=== PATIENT | female | born 1935 | race Two or more races ===

== ENCOUNTER 2016-08-29 10:36 | Observation (INO) | payer MEDICARE ==
[~2016-08-29] VITALS: Ht 147.3 cm; Wt 79.0 kg
--- NOTE | ~2016-08-29 | ECHO ---
Transthoracic Echocardiography Report (TTE) Demographics Patient Name ROSANNA ALDRIDGE Date of Study 08/30/2016 Patient Number [id number] Visit Number [id number] Date of 1935 Room Number G6327 Gender Female Number Age 80 year(s) Referring Lulu [facility] Medical Cash Poster Sujatha Zelaya RDCS, Physician RVT Physician Interpreting Marco Long Field Services Director Physician Supervising Ordering Ethan Lackey MD/MLP Physician Nurse Stress Foam Machine Operator Conclusions Contractility Score Summary Normal Left Ventricular contractility was noted. Summary Normal LV/RV size and systolic function. The estimated left ventricular ejection fraction is 55-60%. Mild concentric left ventricular hypertrophy. Diastolic assessment reveals Grade I diastolic dysfunction. The aortic valve is moderately sclerotic. No evidence of pericardial effusion. Procedure Type of Study TTE procedure:2D Echocardiogram. Procedure Date Date: 08/30/2016 Start: 10:36 AM Study Location: Inpatient Portable Technical Quality: Fair Indications:Syncope. Appropriate Use Criteria: 9 Patient Status: Routine Rhythm: Within normal limits M-Mode/2D Measurements LV Diastolic Dimension: 3.88 cm LV Systolic Dimension: 2.36 cm LV Septum Diastolic: 1.36 cm LV Septum Systolic: 2.33 cm LV PW Diastolic: 1.16 cm AO Root Dimension: 2.1 cm AV Cusp Separation: 1.4 cm RV Diastolic Dimension: 2.78 cm LA Dimension: 3.9 cm LA volume: 46 ml IVC Inspiration: 0.73 cm LVOT: 2.2 cm RV Base: 5.9 cm LVOT VTI: 22.1 cm RV Mid: 2.6 cm LV Stroke volume: 83.97 ml RV Length: 3.48 cm TAPSE: 1.69 cm TDI-S': 16 cm/s Doppler Measurements AV Peak Velocity: 2.31 m/s MV Peak E-Wave: 0.75 m/s AV Peak Gradient: 21.34 mmHg MV Peak A-Wave: 1.26 m/s AV Mean Gradient: 12 mmHg MV E/A Ratio: 0.6 LVOT Peak Velocity: 0.88 m/s MV P1/2t: 56 msec TR Gradient:29.38 mmHg PV Peak Velocity: 1.08 m/s Estimated RAP:3 mmHg PV Peak Gradient: 4.67 mmHg Estimated RVSP: 32 mmHg Estimated PASP: 32.38 mmHg E' Septal Velocity: 0.04 m/s A' Lateral Velocity: 0.13 m/s E' Lateral Velocity: 0.08 m/s MV E/E' Ratio: 9 Findings Left Ventricle The estimated left ventricular ejection fraction is 55-60%. Mild concentric left ventricular hypertrophy. Diastolic assessment reveals Grade I diastolic dysfunction. Right Ventricle Grossly normal right ventricle structure and function. Left Atrium Grossly normal left atrial size. Right Atrium Grossly normal right atrial size. Mitral Valve Mild mitral regurgitation by color Doppler. Aortic Valve The aortic valve is moderately sclerotic. Tricuspid Valve Mild tricuspid regurgitation by color Doppler. Pulmonic Valve Trivial pulmonic valve regurgitation by color Doppler. Pericardial Effusion No evidence of pericardial effusion. Miscellaneous Visualized portions of the aortic root and ascending aorta appear normal in size. Pleural Effusion No evidence of pleural effusion. Signature dtt: CEDRIC BERGMAN dtd: 08/30/16 1036 Physician Self Edit
--- NOTE | ~2016-08-29 | ENPV ---
Vascular Lower Extremities DVT Study Procedure Demographics Patient Name ROSANNA ALDRIDGE Date of Study 08/30/2016 Patient Number [id number] Gender Female Date of 1935 Age 80 Visit Number [id number] Height Accession Number [id number] Weight Room Number G6327 BSA BMI Referring Interpreting Wesley Wylie MD Physician Physician Physician Dana Blankenship V Employment Programs Analyst Physician Blade Filer Anne Witt [facility] Conclusions Summary Negative for DVT Procedure Type of Study: Veins:Lower Extremities DVT Study, Lower Extremity Left. Patient Status:Routine. Study Location:Inpatient Portable. Technical Quality:Adequate visualization. Velocities are measured in cm/s ; Diameters are measured in cm Right Lower Extremities DVT Study Measurements Right 2D and Doppler Measurements + + + + +------+------+ + !Location !Visualized!Compressibility!Thrombosis!Signal!Reflux!Reflux ! ! ! ! ! ! ! !(sec) ! + + + + +------+------+ + !GSV Thigh !Yes !Yes !None !Phasic!No ! ! + + + + +------+------+ + !Common !Yes !Yes !None !Phasic!No ! ! !Femoral ! ! ! ! ! ! ! + + + + +------+------+ + !Prox !Yes !Yes !None !Phasic!No ! ! !Femoral ! ! ! ! ! ! ! + + + + +------+------+ + !Mid Femoral!Yes !Yes !None !Phasic!No ! ! + + + + +------+------+ + !Dist !Yes !Yes !None !Phasic!No ! ! !Femoral ! ! ! ! ! ! ! + + + + +------+------+ + !Popliteal !Yes !Yes !None !Phasic!No ! ! + + + + +------+------+ + !Gastroc !Yes !Yes !None !Phasic!No ! ! + + + + +------+------+ + !PTV !Yes !Yes !None !Phasic!No ! ! + + + + +------+------+ + !Peroneal !Yes !Yes !None !Phasic!No ! ! + + + + +------+------+ + Signature dtt: LUCINDA SHELBY dttamir: 08/30/16 1404 Physician Self Edit
--- NOTE | ~2016-08-29 | CON ---
PATIENT'S NAME: ROSANNA ALDRIDGE [facility] AGE: 80 Y [address] ROOM: G6327 [place], [place] [address] LOCATION: GPCU ADMIT DATE: 08/29/2016 Consultation DISCHARGE DATE: FAMILY PHYSICIAN: YANICK SEN MD ATTENDING PHYSICIAN: VENTURA MARIN V REFERRING PHYSICIAN: Hector Curtis MD REFERRING PHYSICIAN: Ventura Marin MD REASON FOR CONSULT: Syncope. HISTORY OF PRESENT ILLNESS: This is a very pleasant 80-year-old female, who is admitted to the hospital after a syncopal episode. She was reported in 2014 to have a history of paroxysmal atrial fibrillation. She has had followups with Dr. Efrem Davis in the past. She is now on full aspirin therapy, that was started by her primary care physician for possible paroxysmal atrial fibrillation. On day of admission, she had an unwitnessed fall. She was found by the daughter- in-law. She was awake but very confused. She was incontinent of stool and urine. They tried to get her up, but she became unresponsive again, and therefore, the ambulance was called. No seizure activity was noted. She then was very confused and taken to the hospital. She did have an elevated D-dimer and had a CT scan of the head, which was negative. She also underwent a V/Q scan for possible PE, that showed low probability. She had carotid Dopplers done, on the right showing 40%-50% narrowing, left 1%-39% narrowing. She also had Dopplers of the lower extremities, that ruled out for DVT. Her cardiac enzymes were normal. She did have an echocardiogram showing an EF of 55% to 60% with normal heart valves. Her RVSP was 32. The patient denies any exertional chest pain, but she does complain of severe shortness of breath with any kind of activity. She states she recovers fairly quickly once she sits down and rests. She complains of feeling dizzy quite often, and she states she walks very "off balance" a lot. In fact, she sustained a fractured left leg and knee in July due to a one of these falls. PAST MEDICAL HISTORY: 1. Essential hypertension. 2. Hyperlipidemia. 3. Osteoporosis. 4. Autoimmune hepatitis C. 5. History of shingles. 6. Vertebral fractures after a fall out of bed. 7. Left knee fracture and repair in July 2016. PATIENT'S NAME: ROSANNA ALDRIDGE [facility] AGE: 80 Y [address] ROOM: G6327 [place], [place] [address] [facility] ADMIT DATE: 08/29/2016 Consultation DISCHARGE DATE: FAMILY PHYSICIAN: YANICK SEN MD ATTENDING PHYSICIAN: VENTURA MARIN V PAST SURGICAL HISTORY: 1. Lap cholecystectomy. 2. Bilateral cataract surgery. CURRENT MEDICATIONS: 1. Aspirin 325 mg p.o. every day. 2. Spironolactone 12.5 mg every day. 3. Prednisone 10 mg every day for the autoimmune hepatitis. 4. Potassium chloride 30 mEq b.i.d. 5. Ditropan XL 5 mg p.o. every h.s. 6. Omeprazole 20 mg every day. 7. Metoprolol tartrate 12.5 mg p.o. b.i.d. 8. Loratadine 10 mg daily. 9. Ibuprofen 200 mg p.r.n. 10. Lexapro 10 mg every h.s. 11. Calcium 600 plus D one tablet b.i.d. 12. Amlodipine 2.5 mg every day. 13. Xanax 0.5 mg p.r.n. anxiety. 14. Fosamax 70 mg every week on Wednesday. ALLERGIES: NONE TO MEDICATIONS. REVIEW OF SYSTEMS: GENERAL: She denies any fevers or chills. HEAD: She denies headaches. EYES: She wears corrective lenses. EARS: No problems with hearing. NOSE: No epistaxis or rhinorrhea. MOUTH: No gingival bleeding. THROAT: Denies sore throat, hoarseness, or difficulty swallowing. PULMONARY: Denies cough or hemoptysis. GASTROINTESTINAL: Negative for nausea, vomiting, or diarrhea. GENITOURINARY: Positive for urinary frequency and incontinence with dribbling. MUSCULOSKELETAL: She has a history of osteoporosis, recent fractures in her spinal column as well as left leg and knee. There are no complaints of joint swelling. NEUROLOGIC: She does have problems with dizziness and presyncope. No history of seizures. PSYCHIATRIC: She is on Lexapro for anxiety. PHYSICAL EXAMINATION: VITAL SIGNS: She is 4 feet 10 inches and weighs 79 kg. Blood pressure is PATIENT'S NAME: ROSANNA ALDRIDGE [facility] AGE: 80 Y [address] ROOM: G6327 [place], [place] [address] LOCATION: GPCU ADMIT DATE: 08/29/2016 Consultation DISCHARGE DATE: FAMILY PHYSICIAN: YANICK SEN MD ATTENDING PHYSICIAN: VENTURA MARIN V 120/68, heart rate 65, temperature is 98.3. GENERAL: On exam, this is a very pleasant female, who appears to be in no acute distress. HEENT: Her pupils are equal. They do react briskly to light. Conjunctivae are clear. Nose is non-deviated. No rhinorrhea is noted. Oral mucosa is pink and moist. No lesions noted. NECK: Soft and supple. No lymphadenopathy. No thyromegaly. JVD is flat. No carotid bruits are appreciated. LUNGS: Lung sounds are clear anteriorly and posteriorly with good symmetrical chest rise. CV: Distant but regular with a normal S1 and S2. No murmur is appreciated. No rub or click. ABDOMEN: Obese but soft. Bowel sounds are present in all 4 quadrants. EXTREMITIES: Show trace peripheral edema noted in the left leg with a fairly recent scar noted on the left lateral knee area. Distal pulses are 2+/4. LABORATORY DATA: Hemoglobin is 11.7, BUN is 1.1. Sodium 145, potassium is 4.6, magnesium is 2.8. ASSESSMENT: 1. Syncope. She has had a history of witnessed paroxysmal fibrillation in the past. We will continue her on telemetry. We will also check a TSH and free T4. 2. Shortness of breath with activity. This may need further investigation. It is certainly could be an angina equivalent findings. The assessment and plan, history of present illness, and physical exam are per Dr. Hector Curtis. Further recommendations will be forthcoming as information becomes available. BARRIE RAY APRN FOR MD KATHYA JOHNSON/jerry /[id number] d: 09/02/16 0011 t: 09/22/16 0807, CONSULTATION REPORT
--- NOTE | ~2016-08-29 | HP ---
PATIENT'S NAME: ROSANNA ALDRIDGE [facility] AGE: 80 Y [address] ROOM: G6327 [place], [place] [address] LOCATION: GPCU ADMIT DATE: 08/29/2016 History & Physical DISCHARGE DATE: FAMILY PHYSICIAN: YANICK SEN MD ATTENDING PHYSICIAN: VENTURA MARIN V DATE OF SERVICE: CHIEF COMPLAINT: Passed out. HISTORY OF PRESENT ILLNESS: This is obtained entirely from the family members. The patient is a 80-year- old female who sustained an unwitnessed fall earlier today. Apparently, her [id number] heard a thud and went to see her mother. She was on the floor and was awake. However, when she tried to get her up, the patient became unresponsive and lost consciousness. She was unconscious for approximately 1 minute. The patient has no recollection of any of these events, and her first memory is a dose of coming to "that in the ambulance." The family reports that they did not observe any convulsive activity. They do, however, endorse that the patient was quite confused and "glassy eyed," when they were attending to her. Of note, the patient had a tibial plateau repair several months ago. On review of systems, there is positive for intermittent edema of that extremity with dyspnea on even mild exertion. They also endorse muscle fatigue. In the ER, the patient had a workup that was only remarkable for a D-dimer of 1.69, and creatinine of 1.2 up from a baseline of 0.9. At this point, she is alert, oriented, and appropriate. REVIEW OF SYSTEMS: Negative aside from the pertinent positives mentioned above. PAST MEDICAL HISTORY: 1. Autoimmune hepatitis. 2. Hypercholesterolemia. 3. Essential hypertension. 4. The family reported a past medical history of hypertensive intracerebral bleed, however, that appears to be as an old calcification which showed up on the CAT scan done in the ER. CURRENT MEDICATIONS: 1. Aspirin. 2. Metoprolol. 3. Prednisone 10 (for autoimmune hepatitis). 4. Amlodipine. PATIENT'S NAME: ROSANNA ALDRIDGE [facility] AGE: 80 Y [address] ROOM: [address] [place], [place] [address] LOCATION: GPCU ADMIT DATE: 08/29/2016 History & Physical DISCHARGE DATE: FAMILY PHYSICIAN: YANICK SEN MD ATTENDING PHYSICIAN: VENTURA MARIN V 5. Potassium. 6. Lexapro. 7. Alprazolam. 8. Fosamax. 9. Oxybutynin. FAMILY HISTORY: Negative as reported by the patient. SOCIAL HISTORY: Negative for any ongoing or history of toxic habits. PHYSICAL EXAMINATION: VITAL SIGNS: Blood pressure is 112/65, heart rate 87, and saturating 97 to 99% on room air. Afebrile. Respirations are 16. GENERAL: Appears as a morbidly obese, elderly female, in no acute distress. NEUROLOGICAL: Nonfocal. HEENT: Eye exam shows pupils are equal and reactive to light. LYMPHATIC: Shows no cervical lymphadenopathy. ENDOCRINE: Shows no thyromegaly. LUNGS: Clear to auscultation in all davila. CARDIOVASCULAR: Heart rate is regular with no appreciable murmurs, gallops, or rubs. GASTROINTESTINAL: Abdomen is soft, obese, and nontender with slightly diminished bowel sounds. VASCULAR: Reveals 2+ pedal pulses and no lower extremity edema. left carotid bruit present MUSCULOSKELETAL: Shows no muscle or joint abnormalities. SKIN: Warm and dry. PSYCHIATRIC: Reveals appropriate mood, cognition, and affect. LABORATORY DATA: Studies performed in the ER is an unremarkable chest x-ray. An EKG which shows normal sinus rhythm at 78 beats per minute without any ST-segment abnormalities. Glucose is 110, calcium 8.3, creatinine 1.2, and albumin is 2.7. Total bilirubin is 1.7, alkaline phosphatase 154, AST 63, and ALT 52. ProBNP is 459, TSH is 2.970, and D-dimer is 1.65. Urinalysis is unremarkable. ASSESSMENT AND PLAN: This is a 80-year-old female who was admitted with syncope. Individual problems to be addressed are as follows: 1. Syncope. Underlying etiology for this is unclear. This could be a vasovagal episode versus an arrhythmia versus a possible cerebrovascular disease given the presence of a left carotid bruit. We will admit the patient to telemetry unit. We will get carotid ultrasounds. We will get additional sets of cardiac enzymes. We will check orthostatic vital PATIENT'S NAME: ROSANNA ALDRIDGE [facility] AGE: 80 Y [address] ROOM: G6327 [place], [place] [address] [facility] ADMIT DATE: 08/29/2016 History & Physical DISCHARGE DATE: FAMILY PHYSICIAN: YANICK SEN MD ATTENDING PHYSICIAN: VENTURA MARIN V signs. 2. Reported dyspnea and lower extremity edema. The patient has been ordered for a V/Q scan. At this point, she is not hypoxic or tachycardic, or reports any chest pain. As such, we will hold off on anticoagulation and follow up the results of the V/Q scan. 3. Creatinine elevation. We will gently hydrate the patient. We will repeat her electrolytes in the morning. 4. Diminished bowel sounds. We will get a flat film of the abdomen. 5. Essential hypertension. We will continue the patient on her current regimen. 6. Additional management will depend on clinical course. Time dedicated to this patient's encounter is 35 minutes. MD ROJAS LAWSON/jerry /[id number] D: [id number] T: [id number] HISTORY & PHYSICAL
--- NOTE | ~2016-08-29 | NDGEN ---
PATIENT'S NAME: LUIS CARLOS [facility] AGE: 80 Y [address] ROOM: [place] [address] LOCATION: GPCU ADMIT DATE: 08/29/2016 Neurodiagnostics DISCHARGE DATE: FAMILY PHYSICIAN: YANICK SEN MD ATTENDING PHYSICIAN: VENTURA MARIN V PROCEDURE: ELECTROENCEPHALOGRAM DATE OF PROCEDURE: 08/31/2016 TEST: TECH: CLINICAL DIAGNOSIS: DURATION OF EE minutes. REASON FOR EEG: Syncope. CLINICAL HISTORY: The patient is a 80-year-old female who fell in the kitchen. She does not know why she fell, and then she was heard by family and attended to. She was conscious at that time, but did have an episode where she was completely unresponsive and was going in and out of it. The lack of orientation lasted about 1 to 1-1/2 minutes. EEG FINDINGS: The patient was awake for 50% to 60% of the EEG, asleep for remaining. During the awake portions of EEG, 9 Hz background seen in the posterior head regions which was symmetrical rhythmical waxing and waning. Activation procedures included photic stimulation between 3 to 30 Hz which did not show any abnormalities. Very briefly, for about 5 to 10 seconds total in divided intervals, a brief, sharply contoured beta activity was seen in the frontocentral regions, maximum at F3 and CZ for maximum of combined 4 to 5 seconds. This does not evolve into any definitive epileptiform activity. This activity is of unknown significance. It could be electrical artifact near these 2 electrodes as well. CLASSIFICATION: Normal, awake, asleep, 10/20 scalp electrodes. IMPRESSION: This EEG is within normal limits. No epileptiform discharges or EEG seizures were seen during this recording. JOSE ANGEL ANDERSON MD PATIENT'S NAME: ROSANNA ALDRIDGE [facility] AGE: 80 Y [address] ROOM: [place] [address] LOCATION: GPCU ADMIT DATE: 08/29/2016 Neurodiagnostics DISCHARGE DATE: FAMILY PHYSICIAN: YANICK SEN MD ATTENDING PHYSICIAN: VENTURA MARIN/jerry /[id number] dtt: 09/04/16 0855 , JOSE ANGEL ANDERSON dtd: 08/31/16 1226
--- NOTE | ~2016-08-29 | ER ---
PATIENT'S NAME: LUIS CARLOS [facility] AGE: 80 Y [address] ROOM: [place] [address] LOCATION: GPCU ADMIT DATE: 08/29/2016 ER/Outpatient Report DISCHARGE DATE: FAMILY PHYSICIAN: YANICK SEN MD ATTENDING PHYSICIAN: VENTURA MARIN V TIME OF ARRIVAL: 1036 hours. TIME SEEN: 1038 hours. IDENTIFICATION: A 80-year-old female. CHIEF COMPLAINT: Syncopal episode. HISTORY OF PRESENT ILLNESS: The patient's history was obtained from the patient, and then, after the family was brought back, confirmed, and additional history obtained from the family. The patient fell in the kitchen. She does not know why she fell, and then was heard by family and attended to immediately by family. Apparently, she was conscious at that time, but did have an episode where she was completely unresponsive and then kind of in and out of it, not really oriented, lasting for approximately 1 to 1-1/2 minutes. She is not complaining of any pain at this time to me, although as she has been her longer, she does have mid to low back pain, pain in her left ankle, and pain in her left elbow. She was incontinent of urine and stool during this episode. She has had a previous syncopal episode at which time, in 2014, with CT scan at that time showing a small frontoparietal hemorrhage measuring 5 mm. She recently had, in April, a fall with a tibial plateau fracture that was repaired. She has had some intermittent swelling in that leg. She has been short of breath with exertion. PAST MEDICAL HISTORY: ALLERGIES: NO KNOWN DRUG ALLERGIES. CURRENT MEDICATIONS: 1. Aspirin 325 mg daily. 2. Metoprolol 25 mg b.i.d. 3. Prednisone 10 mg daily. 4. Amlodipine 5 mg daily. PATIENT'S NAME: LUIS CARLOS [facility] AGE: 80 Y [address] ROOM: [place] [address] LOCATION: GPCU ADMIT DATE: 08/29/2016 ER/Outpatient Report DISCHARGE DATE: FAMILY PHYSICIAN: YANICK SEN MD ATTENDING PHYSICIAN: VENTURA MARIN V 5. Potassium 20 mEq 2 in the morning and 1 at h.s. 6. Lexapro 5 mg daily. 7. Alprazolam 0.5 mg at h.s. 8. Fosamax 70 mg weekly. 9. Oxybutynin 5 mg daily. 10. Caltrate 600 plus vitamin D3 two daily. MEDICAL PROBLEMS: Autoimmune hepatitis; hypertension; dyslipidemia; thoracic compression fracture; gastroesophageal reflux disease; left tibial plateau fracture, status post ORIF in April 2016; right shoulder contusion; acute kidney injury; and constipation. PRIOR SURGERIES: Laparoscopic cholecystectomy, bilateral cataracts, and spine and vertebral fractures. FAMILY HISTORY: No pertinent family history identified. SOCIAL HISTORY: The patient was living in [place], but I believe in 2014 she moved here to be with her son and is living with her son and [id number]. Tobacco use: Denies. Alcohol use: Denies. Drug use: Denies. REVIEW OF SYSTEMS: All systems reviewed and negative other than what is noted in the HPI. She complains of generalized weakness, and that when she fell, she was unable to get up secondary to the weakness. PHYSICAL EXAMINATION: VITAL SIGNS: Height 4 feet 11 inches, weight 80 kg, blood pressure 113/72, pulse 74, respirations 20, temperature 97.8, and saturation is 96% on room air. GENERAL: A 80-year-old female in no acute distress, although she just complains of generalized weakness. HEENT: Head: Normocephalic, atraumatic. Ears: TMs translucent, both ears. Eyes: Pupils equal and reactive to light and accommodation. Extraocular movements intact. Nose: Mucosa pink, no lesions. Mouth: No lesions. Pharynx: Benign. NECK: Supple. No lymphadenopathy. No tenderness to palpation of her cervical spine. She does have some tenderness to mid thoracic spine and a little bit of low back pain, but not specifically tender on exam. No bruising or ecchymosis is noted. HEART: Regular rate and rhythm. No murmur, rub, or gallop. PATIENT'S NAME: ROSANNA ALDRIDGE [facility] AGE: 80 Y [address] ROOM: [place] [address] LOCATION: GPCU ADMIT DATE: 08/29/2016 ER/Outpatient Report DISCHARGE DATE: FAMILY PHYSICIAN: YANICK SEN MD ATTENDING PHYSICIAN: VENTURA MARIN V ABDOMEN: Bowel sounds present. Soft, nondistended, and nontender. No tenderness to pelvic rock. EXTREMITIES: Full range of motion. No deformities noted. Good distal pulses. Sensation is intact to light touch. She does have the previous ORIF incision from her left tibial plateau fracture. She has mild swelling. No calf tenderness. NEUROLOGIC: At this time, the patient is alert and oriented x4. Cranial nerves 2 through 12 grossly intact. Motor strength is 5/5 throughout, but she does have some generalized weakness, nothing appreciable on examination. Sensation intact to light touch. On reexamination, she is tender over her left elbow, a little bit over the radial head. No swelling or ecchymosis is noted. She has full range of motion. No tenderness to palpation of her left wrist or her left shoulder. LABORATORY AND DIAGNOSTIC DATA: EKG: Normal sinus rhythm at 78 beats per minute. No acute ST elevation or depression. She does have some nonspecific T-wave changes. No acute findings, and no significant change when compared to prior EKG in April 2016. TSH 2.970. Sodium 142, potassium 4.7, chloride 110, CO2 of 23, BUN 21, and creatinine elevated at 1.2. Her last creatinine was 0.9 in May 2016. She had one that was 1.4 on May 01. Blood sugar 110. Albumin low at 2.7. Alkaline phosphatase 154 and AST 63, these have been elevated in the past. Magnesium 1.8. CPK 17. Specific gravity 1.020, pH 5.0, leukocytes trace, trace of protein, trace of ketones, rare white cells, negative red cells, and rare epithelial cells. CK-MB less than 0.5 and troponin-I less than 0.040. D-dimer is elevated at 1.65. ProBNP 459. Hemoglobin 13.9, hematocrit 42.2, platelets 154, and white count 4.3 with a normal differential. INR 1.1. Prehospital EKG was reviewed prior to the patient coming: Normal sinus rhythm at 75 beats per minute. No acute ST elevation or depression. The patient had a saline lock on arrival. As she was here, she developed the above-mentioned pain. Initially, she denied any pain. X-rays that were obtained include one-view chest x-ray: No acute process, pending Radiology over-read. Left elbow x-ray: No acute fracture, pending Radiology over-read. Left ankle x-ray: Negative for acute fracture or dislocation, pending Radiology over-read. Head CT without contrast: Periventricular small vessel ischemic changes, nothing acute. Stable, benign-appearing calcification in the left parietal lobe, nothing acute. V/Q scan low probability for PE. CT of the thoracic spine: Stable-appearing compression fractures at T5, 6, 10, and 11. Stable changes of prior vertebroplasty at T5 and T6. LS spine CT: Chronic-appearing compression deformity involving the superior L3 endplate. Multilevel degenerative changes, nothing acute. IMPRESSION: PATIENT'S NAME: ROSANNA ALDRIDGE [facility] AGE: 80 Y [address] ROOM: [address] [address] LOCATION: [facility] ADMIT DATE: 08/29/2016 ER/Outpatient Report DISCHARGE DATE: FAMILY PHYSICIAN: YANICK SEN MD ATTENDING PHYSICIAN: VENTURA MARIN V 1. Syncopal episode. 2. Multiple old compression fractures. 3. Left ankle pain. No fracture. 4. Left elbow pain. No fracture. 5. Elevated D-dimer, but with low probability V/Q scan. PLAN: Admission and observation per Dr. Marin. He did evaluate the patient in the emergency room, please refer to his dictation. DAVID DAVIS MD CAR/modl /[id number] d: 08/30/16 1337 t: 09/01/16 1424, OUTPATIENT REPORT
--- NOTE | ~2016-08-29 | CON ---
PATIENT'S NAME: LUIS CARLOS [facility] AGE: 80 Y [address] ROOM: [place] [address] LOCATION: GPCU ADMIT DATE: 08/29/2016 Consultation DISCHARGE DATE: FAMILY PHYSICIAN: YANICK SEN MD ATTENDING PHYSICIAN: VENTURA MARIN V DATE OF CONSULTATION: 09/01/2016 REFERRING PHYSICIAN: Hector Curtis MD NEUROLOGICAL CONSULTATION DATE AND TIME: 09/01/2016 at 12:45 p.m. REASON FOR CONSULTATION: Syncopal episode. HISTORY OF PRESENT ILLNESS: This is a 80-year-old, female, who was brought to the emergency room by her family on 08/29/2016. The patient had gotten up from a chair and went into the kitchen to get a glass of juice. She fell. After due to fall and she said yes, she was totally cognizant during this part. The family came to her and tried to sit her up where she did go unresponsive for about 1 minute. She has really denied any pain from the fall except for her left elbow. She was incontinent of urine during this time. She has had some previous syncopal episodes like this once in [place], once in a coffee shop, but they have not resulted in falls because she has been dizzy beforehand and knew to sit down because she was going to become weak and lightheaded. However, there was no pre-warning in any of this time, of this fall on Wednesday. PAST MEDICAL HISTORY: Includes: 1. Autoimmune hepatitis. 2. Hypercholesterolemia. 3. Essential hypertension. 4. The family reported a past medical history of hypertensive intercerebral bleed, but they are wondering if that is the old calcification which did show up on this CAT scan done in the ED. CURRENT MEDICATIONS: 1. Full-dose aspirin daily. 2. Metoprolol. 3. Prednisone 10 for her hepatitis. 4. Amlodipine. 5. Potassium. PATIENT'S NAME: LUIS CARLOS [facility] AGE: 80 Y [address] ROOM: [place] [address] LOCATION: GPCU ADMIT DATE: 08/29/2016 Consultation DISCHARGE DATE: FAMILY PHYSICIAN: YANICK SEN MD ATTENDING PHYSICIAN: VENTURA MARIN V 6. Lexapro. 7. Alprazolam. 8. Fosamax. 9. Oxybutynin. FAMILY HISTORY: Negative as reported by the patient. SOCIAL HISTORY: The patient is . She does not smoke or drink. She denies any illicit drug use. PHYSICAL EXAMINATION: VITAL SIGNS: Her blood pressure is 146/64, heart rate 88, and oxygen saturation 98% on room air. She is afebrile. Her respirations are 16. GENERAL APPEARANCE: She appears as an obese, elderly female, in no acute distress. However, she is slightly anxious and states she is very frustrated that she does not have an answer for this syncopal episode. HEENT: Her pupils are equal and reactive to light. Extraocular movements are intact. Head is normocephalic and atraumatic. LYMPHATICS: Shows no cervical lymphadenopathy. LUNGS: Clear to auscultation bilaterally. CARDIOVASCULAR: Heart rate is regular with no murmurs, rubs, or gallops. GASTROINTESTINAL: Abdomen is soft and round with hypoactive bowel sounds. VASCULAR: Reveals 2+ pedal pulses and no lower extremity edema. MUSCULOSKELETAL: No muscular or joint abnormalities. NEUROLOGIC: Her cranial nerves 2 through 12 are intact. She is alert and oriented x4. She is a good historian. Her motor strength in upper and lower extremities is 5+. Sensation is intact to light touch and proprioception. Deep tendon reflexes normal to brachial radialis and patellar. Her NIH Stroke Scale is zero. IMAGING STUDIES: Her CT done in the emergency room does show confluent periventricular small- vessel ischemic changes with no acute ischemia or hemorrhage. We did do an MRI, and on the GRE views of the MRI of the brain do show small vascular bleeds. According to Dr. Jiang, although we do not have the official radiology report, these may be of an amyloid nature. An EEG does show that for 5 to 10 seconds, she had some contoured beta activity in the frontal central regions, maximum at F3 and C7 for about 4 to 5 seconds, but it did not evolve into any definitive epileptiform activity. ASSESSMENT AND PLAN: Rosanna has been having these syncopal episodes for several months now. Although our EEG is negative and she did have some two weeks of cardiac monitoring PATIENT'S NAME: ROSANNA ALDRIDGE [facility] AGE: 80 Y [address] ROOM: [address] [place] [address] [facility] ADMIT DATE: 08/29/2016 Consultation DISCHARGE DATE: FAMILY PHYSICIAN: YANICK SEN MD ATTENDING PHYSICIAN: VENTURA MARIN V prior to this, suspect cardiac versus seizure activity. 1. Intracerebral hemorrhages. Would recommend decreasing aspirin to 81 mg every other day based on MRI results. This was discussed with the patient and her son. 2. Possible cardiac event. Would recommend cardiac monitoring post discharge. The patient does have a history of atrial fibrillation. 3. Possibility for seizure. Would recommend followup in Neurologic Clinic and possible EEG monitoring at home to identify cause of syncope. Thank you for this very interesting consult. The consult was developed in conjunction with Dr. Jiang, who also examined the patient with me. NICOLETTE DOE APRN FOR ALIN JIANG MD PP/modl /[id number] P d: 09/01/16 2244 t: 09/07/16 1205, CONSULTATION REPORT
--- NOTE | ~2016-08-29 | DS ---
PATIENT'S NAME: ROSANNA MAHONEY [facility] AGE: 80 Y [address] ROOM: [address] [address] LOCATION: GPCU ADMIT DATE: 08/29/2016 Discharge Summary DISCHARGE DATE: 09/02/2016 FAMILY PHYSICIAN: Adrienne Lawson MD ATTENDING PHYSICIAN: Krzysztof Long V PRINCIPAL DISCHARGE DIAGNOSIS: Syncope, unclear etiology. SECONDARY DIAGNOSES: 1. Hypertension. 2. Autoimmune hepatitis. 3. Protein-calorie malnutrition, moderate. 4. Chronic kidney disease, EGFR 48, stage 3-4. 5. Dyspnea on exertion. 6. Elevated D-dimer. 7. Orthostatic hypotension with tachycardia. CONSULTATIONS: 1. Neurology, Teleneurology on the with Dr. Ponce, who saw the patient on 09/01/2016. 2. Cardiology, Dr. Hector Curtis, on 09/01/2016. PROCEDURES: Echocardiogram on 08/30/2016, brief summary of results: 1. Normal left ventricular size and function with estimated left ventricular EF 55% to 60%. 2. Mild concentric left ventricular hypertrophy. 3. Grade 1 diastolic dysfunction. 4. No significant valvular abnormalities except the aortic valve is moderately sclerotic. BRIEF HISTORY: Ms. Mahoney is a 80-year-old female who sustained an unwitnessed fall on the day of admission. She had gotten up from one room and walked to another room, where she fell. When her [id number] arrived at her side, a few moments later, she was awake and on attempts to sit her up, she became unresponsive and lost consciousness for about one minute. The patient had loss of memory until the events in the ambulance. She was confused and somewhat glassy eyed. When she woke up, I think she also told other person later in the admission that she actually did have urinary incontinence at that time. Review of systems was positive for intermittent edema in the lower extremities, mild dyspnea on exertion, and muscle fatigue. She also had another episode of syncope about 1.5 years before this and a long-term linoleum layer apprentice over 2 weeks did not show any arrhythmias at that time. PATIENT'S NAME: LUIS CARLOS [facility] AGE: 80 Y [address] ROOM: [id number] [place], [place] [address] LOCATION: GPCU ADMIT DATE: 08/29/2016 Discharge Summary DISCHARGE DATE: 09/02/2016 FAMILY PHYSICIAN: Adrienne Lawson MD ATTENDING PHYSICIAN: Krzysztof Long V The patient has had no significant symptoms here presyncopal or syncopal. She does report a history of what sounds like dizziness and dyspnea on exertion. She also reports some vertiginous symptoms, which are intermittent. She had orthostatic blood pressures done yesterday evening, which showed lying 118/65, sitting 121/61, and standing 98/53. These were repeated this morning with heart rates at 8 a.m. this morning, lying was 154/80 with a heart rate of 87, sitting 118/77 and heart rate of 91, and standing 109/55 with heart rate of 108. I did tell the son that this is significant enough which could contribute to syncope; although, still I am not convinced that it caused the episodes, which precipitated this admission. She was also found to have a low prealbumin of 12. Recommended increase protein in her diet. Most recent labs include sodium 145, potassium 4.6, chloride 113, CO2 24, BUN 20, creatinine 1.1, glucose 82, EGFR is 48, total protein 5.6, albumin 2.2, globulin 3.4, total bili 0.9, alkaline phosphatase 144, AST 51, ALT 43, and a pro-BNP was 417. 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 EEG showed normal awake and asleep, there was no epileptiform discharges, and Neurology has recommended that she follow up with an extended monitoring home EEG to further evaluate for any seizure activity as contributory to her recent syncopal episode. I did discuss that with the son and we will try and schedule that followup. I did speak to Dr. Lawson earlier this week who said that she had episode of AFib in her history. I have reviewed telemetry and she has been in normal sinus rhythm during this admission. INSTRUCTIONS AT DISCHARGE: 1. Diet: Low fat, cardiac prudent, with high-protein. 2. Activity: As tolerated. I gave her directions about going slowly with any change of position especially from [id number] she should sit for a couple of minutes, pump her legs prior to this. In addition, I explained that she would need to stay well-hydrated and needs 8 ounce glasses of water per day. 3. Followup with Dr. Lawson on 09/04/2016, Dr. Rowan today at 1 p.m., we are anticipating he will place a 30-day linoleum layer apprentice, and she should be given an appointment to be seen in the Neurology Clinic as soon as possible and schedule extended EEG monitor placement. MEDICATIONS AT THE TIME OF DISCHARGE: 1. Amlodipine 2.5 mg p.o. daily. 2. Aspirin 81 mg p.o. every 48 hours. PATIENT'S NAME: ROSANNA MAHONEY [facility] AGE: 80 Y [address] ROOM: [place] [address] LOCATION: [facility] ADMIT DATE: 08/29/2016 Discharge Summary DISCHARGE DATE: 09/02/2016 FAMILY PHYSICIAN: Adrienne Lawson MD ATTENDING PHYSICIAN: Krzysztof Long V 3. Calcium carbonate p.o. b.i.d. to be taken with meals. 4. Lexapro 10 p.o. daily. 5. Metoprolol 12.5 mg p.o. b.i.d. 6. Prilosec 20 daily. 7. Potassium tablet 20 mEq b.i.d. 8. Prednisone 10 mg daily. 9. Spironolactone 12.5 mg daily. 10. Fosamax 70 mg weekly. 11. Xanax 0.5 mg at h.s. 12. Ditropan XL 5 mg daily. 13. Ibuprofen p.r.n. CONDITION AT DISCHARGE: Good. JEFE MARTINEZ MD LM/jerry /[id number] CC: MD Skyler Craig MD Jason R Mallin, MD d: 09/03/16 0304 t: 09/15/16 0855, DISCHARGE SUMMARY
[~2016-08-29 10:36] MED LIST changes: -ALDACTONE25 MG PO; -PRILOSEC20 MG PO
[2016-08-29 11:02] LABS: BASOPHIL # 0.1 K/uL (0.0-0.2); BASOPHIL % 1.4 %; EOSINOPHIL # 0.1 K/uL (0.0-0.5); EOSINOPHIL % 2.5 %; HEMOGLOBIN 13.9 g/dL (10.0-15.0); IMMATURE GRANULOCYTE # 0.1 K/uL (0.0-0.3); IMMATURE GRANULOCYTE % 3.2 %; LYMPHOCYTE # 0.8 K/uL (0.8-4.0); LYMPHOCYTE % 18.5 %; MCHC 32.9 gm/dL (32.0-36.5); MCV 93.2 fl (83.0-98.0); MONOCYTE # 0.4 K/uL (0.0-1.0); MPV 11.9 fl (9.4-12.4); NEUTROPHIL # (ANC) 2.8 K/uL (1.8-7.8); NEUTROPHIL % 64.4 %; NRBC % 0.5 /100WBC (0-0.00); PLATELET COUNT 154 K/uL (150-450); RDW-CV 15.5 % (11.9-14.6); WBC 4.3 K/uL (4.0-11.0)
[2016-08-29 11:04] LABS: HEMATOCRIT 42.2 % (33.0-46.0); MCH 30.7 pg (27.0-34.0); RBC 4.53 M/uL (3.50-5.50)
[2016-08-29 11:08] LABS: INR - (THERAPEUTIC) 1.1 (0.9-1.1); PROTIME 11.9 SECONDS (9.6-11.1); PTT 26 SECONDS (25-32)
[2016-08-29 11:17] LABS: ALBUMIN 2.7 gm/dL (3.5-5.0); ALK PHOS 154 IU/L (33-138); ALT 56 IU/L (12-78); ANION GAP 13.7 (10.0-19.0); AST 63 IU/L (10-40); BLOOD UREA NITROGEN 21 mg/dL (6-24); CALCIUM 8.3 mg/dL (8.5-10.5); CHLORIDE 110 mMol/L (96-110); CO2 23 mMol/L (22-32); CPK 17 IU/L (21-215); CREATININE 1.2 mg/dL (0.5-1.1); MAGNESIUM 1.8 mg/dL (1.3-2.6); POTASSIUM 4.7 mMol/L (3.7-5.1); SODIUM 142 mMol/L (135-145); TOTAL PROTEIN 6.7 g/dL (6.0-8.4)
[2016-08-29 11:20] LABS: ESTIMATED GFR (MDRD EQUATION) 43; TOTAL BILIRUBIN 1.7 mg/dL (0.0-1.5)
[2016-08-29 11:56] LABS: BLOOD URINE NEGATIVE /UL (NEGATIVE); COLOR URINE AMBER (YELLOW); GLUCOSE URINE NEGATIVE (NEGATIVE); KETONE URINE 5 mg/dL (NEGATIVE); LEUKOCYTES URINE 25 /UL (NEGATIVE); NITRITE URINE NEGATIVE (NEGATIVE); PROTEIN URINE 15 mg/dL (NEGATIVE); TURBIDITY URINE CLEAR (CLEAR); UROBILINOGEN URINE 4 mg/dL (NORMAL)
[2016-08-29 12:04] LABS: WBC URINE RARE #/HPF (NEGATIVE)
[2016-08-29 12:05] LABS: BACTERIA URINE NEGATIVE (NEGATIVE); EPITHELIAL URINE RARE #/HPF (NEGATIVE); MUCUS URINE 2+ (NEGATIVE); RBC URINE NEGATIVE #/HPF (NEGATIVE)
[2016-08-29] MEDS ORDERED: ALDACTONE25 MG PO (15:16)
[2016-08-29] MEDS ORDERED: PRILOSEC20 MG PO (15:16)
[2016-08-29] MEDS ORDERED: K-TAB 10MEQ10 MEQ PO (15:17)
[2016-08-29] MEDS ORDERED: ADVIL200 MG PO (15:17)
--- NOTE | 2016-08-29 16:05 | NUR ---
PT ADMITTED TO ROOM FROM ER AFTER VQ SCAN. PT STATES SHE WAS WALKING TO GET SOME ORANGE JUICE AND THE NEXT THING SHE KNEW, SHE HEARD HER DAUGHTER IN LAW ASKING HER IF SHE WAS OK AND IF SHE FELL. SHE STATES SHE DOES NOT REMEMBER ANY OF IT AND WAS NOT FELLING BAD PRIOR TO EPISODE. PT DOES STATE THAT LATELY HER LEGS HAVE FELT REALLY WEAK. DENIES ANY PAIN OR DISCOMFORT AT THIS TIME. PT ORIENTED TO ROOM, SURROUNDINGS AND PLAN OF CARE.
--- NOTE | 2016-08-29 19:07 | NUR ---
PATIENT UP 1 ASSIST TO BR, SLIGHTLY UNSTEADY AND SHORT OF BREATH. SATS LOW 90'S ON RA. PATIENT CALLED FOR ASSIST, BED ALARM ON FOR FALL RISK. NS IV AT 75ML/HR.
--- NOTE | 2016-08-30 04:09 | NUR ---
Significant Event:alert & oriented. VSS.RA. Pt c/o L knee pain, tylenol given. Pt statesm "sore from the fall." Pt up with 1 assist. Pt c/o dizziness upon waking, and changing positions at times but goes away. orthostatic BP negative this shift. c/o L hand tingling intermittently. Follow up: echo, carotid us, le duplex us, eeg,pt/ot
[2016-08-30 06:42] LABS: CALCIUM 8.4 mg/dL (8.5-10.5); PHOSPHORUS 3.3 mg/dL (2.5-4.9)
--- NOTE | 2016-08-30 15:12 | NUR ---
Significant Event: pt had her echo done this am. Legs and carotids doppled this afternoon. Pt up to bathroom and cain one asst. Showered today. Pt family here on/off. IV s.locked. No c/o pain. Follow up:
--- NOTE | 2016-08-31 04:35 | NUR ---
Significant Event: VSS.RA. BP ELEVATED WITH EARLY AM WAKE. PT UP W/1A FWW GB. UNEVENTFUL NIGHT. Follow up: EEG
[2016-08-31 05:56] LABS: HEMOGLOBIN 11.7 g/dL (10.0-15.0); RBC 3.83 M/uL (3.50-5.50); WBC 3.7 K/uL (4.0-11.0)
[2016-08-31 05:57] LABS: BASOPHIL % 0.8 %; EOSINOPHIL # 0.1 K/uL (0.0-0.5); EOSINOPHIL % 1.9 %; HEMATOCRIT 35.7 % (33.0-46.0); IMMATURE GRANULOCYTE # 0.1 K/uL (0.0-0.3); IMMATURE GRANULOCYTE % 1.4 %; LYMPHOCYTE # 0.7 K/uL (0.8-4.0); LYMPHOCYTE % 18.2 %; MCH 30.5 pg (27.0-34.0); MCHC 32.8 gm/dL (32.0-36.5); MCV 93.2 fl (83.0-98.0); MONOCYTE # 0.4 K/uL (0.0-1.0); MONOCYTE % 10.6 %; MPV 11.9 fl (9.4-12.4); NEUTROPHIL # (ANC) 2.5 K/uL (1.8-7.8); NEUTROPHIL % 67.1 %; NRBC % 0 /100WBC (0-0.00); RDW-CV 15.4 % (11.9-14.6)
[2016-08-31 06:01] LABS: PLATELET COUNT 108 K/uL (150-450)
[2016-08-31 06:14] LABS: ALBUMIN 2.2 gm/dL (3.5-5.0); ANION GAP 12.6 (10.0-19.0); CREATININE 1.1 mg/dL (0.5-1.1); POTASSIUM 4.6 mMol/L (3.7-5.1); TOTAL PROTEIN 5.6 g/dL (6.0-8.4)
[2016-08-31 06:15] LABS: TOTAL BILIRUBIN 0.9 mg/dL (0.0-1.5)
--- NOTE | 2016-08-31 15:21 | NUR ---
Introduced self and role of care management to patient and family. She lives in [place] with her son and daughter in law. She states that she is able to do all her own ADL's. She states that her family does assist as needed. She plans on returning home on discharge. She denies any needs. I did call Dr Gibbons and ask if she knew when she would be rounding on patient per request of her daughter in law as they want family there. Will continue to follow.
--- NOTE | 2016-08-31 17:11 | NUR ---
Significant Event: A/OX3, VSS ON ROOM AIR. PT. GETS UP SBA UP TO BATHROOM WITH GAIT BELT AND WALKER. PT. WALKED IN HALLS X2 WITH PHYSICAL THERAPY, WORKED WITH OT TODAY. GAVE TYLENOL AT 1056 FOR COMPLAINTS OF LEFT ANKLE PAIN. SLIV TO R)WRIST. NEUROLOGY TO SEE PT. IN AM, JERRY DOE SAW PT. TODAY, MRI DONE TODAY. EEG DONE THIS AM, WITH NEGATIVE RESULTS. Follow up: CONTINUE WITH POC.
--- NOTE | 2016-08-31 22:57 | NUR ---
Significant Event: Pt A&Ox3. Has had frequent falls in past. Most recent fall was on Sat after PT associated with L knee repair from fall. About a year ago, did have small brain bleed after fall. CT neg, EEG neg, waiting on results for MRI. No c/o dizziness; orthostatic VS have been neg. Does have urinary frequency/urgency. Is x1 assist with FWW and gaitbelt. VSS; no c/o pain on shift. Did take Tylenol x1 for Lt foot pain. General diet. PIV in R wrist. Follow up: MRI findings, decision for POC, etc.
--- NOTE | 2016-09-01 05:21 | NUR ---
Significant Event: PT SLEEPING WELL SINCE I ASSUMED CARE AT 2345. UP X1 TO THE BR. NO C/O DIZZINESS. REMAINS ON ROOM AIR. DENIES PAIN. NEURO CHECKS INTACT. PUPILS EQUAL AND REACTIVE. NO EXTREMITY WEAKNESS. NO FACIAL DROOP. Follow up:
--- NOTE | 2016-09-01 11:49 | NUR ---
A-NUTRITION CONSULT RECEIVED D/T PT'S LOW PREALB PT IS DX W/AUTOIMMUNE HEPATITIS. BROKEN LEG X 4 MOS AGO. VISITED W/PT AND PT'S SON. PT REPORTS GOOD APPETITE; "I LIKE FOOD." HER UBW IS HIGH 160s TO LOW 170s, PER BOTH PT AND PT'S SON. SHE DENIES WT LOSS COMMUNITY SPECIALIST. PT'S SON REPORTS THAT HER MD WOULD LIKE FOR HER TO LOSE SOME WT. HT: 58 IN. CBW: 174 LBS (STANDING SCALE); ADMIT WT WAS 165 LBS (BED SCALE) BMI 36.4. 180% OF IBW LABS: NA 145, K+ 4.6, GLU 82, BUN 20, ADVERTISING WRITER 1.1, ALB 2.2, PREALB 12.0. LOW PREALB MOST LIKELY R/T TO PT'S DX NOT D/T INADEQUATE NUTRITION AT THIS TIME. MEDS: SENOKOT, ECOTRIN, PROTONIX, SANCTURA, LEXAPRO, OSCAL+D, DELTASONE, XANAX, ZOFRAN DIET RX: REGULAR. PO INTAKE 75-100% EST NUTR NEEDS: [id number] KCALS (20-25 KCALS/KG) 66-88 GM PROTEIN (1.5-2.0 GM/KG IBW) 1 ML FLUID/KCAL D-NOT AT NUTRITION RISK; NO NUTRITION DX IDENTIFIED I-CONTINUE W/CURRENT DIET RX M/E-WILL ASSIST NEEDED
--- NOTE | 2016-09-01 16:35 | NUR ---
Significant Event: pt up cain with therapy, and up to bathroom 1 asst/walker. Neuro came with consult per telehealth today. MRI result done. No c/o pain. Neuros normal. Pt will go home today, after dr Curtis sees, to wants see dr Rowan tomorrow as f/u and place monitor, possible stress test future. Minibleeds in head, decreased aspirin. Follow up:
--- NOTE | 2016-09-02 03:48 | NUR ---
Significant Event: A/0X3. RESTED IN BED ALL OF SHIFT. TURNS SELF. 1 ASSIST WITH WALKER TO BR. AFEBRILE. VSS ON RA. ORTHOSTATIC BLOOD PRESSURES DONE AT BEGINNING OF SHIFT. LAYING 118/65 SITTING 121/61 AND STANDING 98/53. SBP RANGED ANY WHERE FROM 98-140'S. LOPRESSOR HELD THIS EVENING JUAN DIEGO OF PARAMETERS. NO C/O OF DIZZINESS. DENIES PAIN. IV TO R) WRIST SL. INCONTIENT OF URINE X1. SMALL BM THIS SHIFT. D/C MEDS PRINTED AND ON THE CHART. Follow up: CONTINUE WITH PLAN OF CARE. D/C HOME TODAY.
--- NOTE | 2016-09-02 13:01 | NUR ---
PATIENT AND SON GIVEN WRITTEN DISMISSAL INSTRUCTIONS INCLUDING NEW HOME MEDICATION LIST WITH INFORMATION ON NEW MEDS, PRESCRIPTIONS, FOLLOW-UP APPOINTMENT TIMES, DIET AND ACTIVITY RESTRICTIONS, AND INFORMATION ON SYNCOPE PREVENTION. PIV TO R) HAND DC'D WITH GAUZE AND COBAN APPLIED. TELEMETRY DC'D AND PATIENT DRESSED. TAKEN TO [facility] FOR APPOINTMENT AT 1300 VIA WHEELCHAIR ACCOMPANIED BY PATIENT'S BELONGINGS, SON AND STUDENT RN AT 1250.
== END 2016-09-02 12:50 | disposition disaster alternative care site (69) ==
LOC: GMED 10:36 → GPCU 13:12
PROVIDERS: Family Medicine; ADMIT Internal Medicine
DX: R55 Syncope and collapse (principal); I12.9 Hypertensive chronic kidney disease with stage 1 through stage 4 chronic kidney disease, or unspecified chronic kidney disease; N18.4 Chronic kidney disease, stage 4 (severe); R06.02 Shortness of breath; K75.4 Autoimmune hepatitis; E78.5 Hyperlipidemia, unspecified; M81.0 Age-related osteoporosis without current pathological fracture; E78.00 Pure hypercholesterolemia, unspecified; E44.0 Moderate protein-calorie malnutrition; R79.1 Abnormal coagulation profile; Z79.82 Long term (current) use of aspirin; Z90.49 Acquired absence of other specified parts of digestive tract; Z98.41 Cataract extraction status, right eye; Z98.42 Cataract extraction status, left eye; Z98.890 Other specified postprocedural states
CPT/HCPCS: A9539; A9540; G0378; G8978; G8979; G8980; G8987; G8988; G8989; J1650; J7030; J7512

== ENCOUNTER → 2016-08-29 | Outpatient (CLI) | payer MEDICARE ==
[~2016-08-29] MED LIST: ADVIL200 MG PO; ALDACTONE25 MG PO; ASPIR 8181 MG; ASPIRIN (CHILDR81 MG PO; CALCIUM 600 +1 EAC3 PO; CLARITIN10 MG PO; DELTASONE10 MG PO; DITROPAN XL5 MG PO; FOSAMAX70 MG PO; K-TAB 10MEQ10 MEQ PO; LEXAPRO10 MG PO; LOPRESSOR25 MG PO; LOVENOX 4040 MG/0.4 SUB-Q; MILK OF MA400 MG/5 M PO; MIRALAX17 GM PO; NORCO 5-325 TA1 EACH PO; NORVASC2.5 MG PO; OSCAL PO; PRILOSEC20 MG PO; PRINIVIL OR ZES10 MG PO; TYLENOL325 MG PO; XANAX0.5 MG PO; ZANTAC (NON-FO150 MG PO
== END | disposition disaster alternative care site (69) ==
LOC: GAMB 10:13
DX: R55 Syncope and collapse (principal); I10 Essential (primary) hypertension; Z79.82 Long term (current) use of aspirin; Z79.899 Other long term (current) drug therapy
CPT/HCPCS: A0425; A0427